=== PATIENT | female | born 1990 | race African-American/Black ===

== ENCOUNTER 2016-07-27 08:47 | Emergency (ER) | payer OTHER ==
[~2016-07-27] VITALS: Ht 157.5 cm; Wt 68.0 kg
[~2016-07-27 08:47] MED LIST: METR-1 PO
[2016-07-27 08:49] VITALS: PULSE 94; RESP 16; TEMP 98.9; O2SAT 97
[2016-07-27 09:07] VITALS: BP 111/76
--- NOTE | 2016-07-27 09:12 | PD ---
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 She has noticed the symptoms for the past 5 days and started after having intercourse. Patient reports that her partner used a condom. She has never had a reaction like this before. There is slight whitish vaginal discharge. No dysuria. No abdominal pain. No fevers or chills. Patient reports history of bacterial vaginosis. She tried Monistat without relief of symptoms. PFSH Past Medical History Asthma: Yes Diminished Hearing: No Immunizations Current: Yes Tetanus Vaccination: Unknown Influenza Vaccination: No ?: Not LMP: 07/08/16 : 1 Para: 0 Miscarriage: 0 : 1 Past Surgical History Surgical History: No Previous Surgery Social History Alcohol Use: No Tobacco Use: No Substance Use: No Allergies-Medications (Allergen,Severity, Reaction): Coded Allergies: No Known Allergies (Unverified , 07/27/16) Reported Meds & Prescriptions Reported Meds & Active Scripts Active No Active Prescriptions or Reported Medications Review of Systems Except as stated in HPI: all other systems reviewed are Neg Physical Exam Narrative GENERAL: Well-developed, well-nourished, comfortable, no acute distress. SKIN: Warm and dry. HEAD: Atraumatic. Normocephalic. ENT: Mucous membranes pink and moist. GASTROINTESTINAL: Abdomen soft, non-tender, nondistended. BULL RIVETER: Exam performed in the presence of female nurse. Normal external genitalia. Normal cervix. Scant whitish/[id number]-[id number] vaginal discharge. No CMT. No uterine tenderness. No adnexal masses or tenderness. PSYCHIATRIC: Appropriate mood and affect; insight and judgment normal. Data Data Last Documented VS Vital Signs Date Time Temp Pulse Resp B/P Pulse Ox O2 Delivery O2 Flow Rate FiO2 07/27/16 09:07 111/76 07/27/16 08:49 98.9 94 16 97 Orders Gc And Chlamydia Pcr (07/27/16 09:05) Wet Prep Profile (07/27/16 09:05) Urinalysis - C+S If Indicated (07/27/16 09:05) Ed Urine Pregnancytest Poc (07/27/16 09:05) Urine Culture (07/27/16 09:10) Fluconazole (Diflucan) (07/27/16 09:30) Labs Laboratory Tests Test 07/27/16 07/27/16 09:10 09:25 Urine Collection Type CLEAN CATCH Urine Color YELLOW Urine Turbidity CLEAR Urine pH 7.0 Urine Specific [place] 1.023 Urine Protein TRACE mg/dL Urine Glucose (UA) NEG mg/dL Urine Ketones NEG mg/dL Urine Occult Blood NEG Urine Nitrite NEG Urine Bilirubin NEG Urine Leukocyte Esterase MOD Urine RBC 0-3 /hpf Urine WBC 9-14 /hpf Urine Squamous Epithelial > 8 /hpf Cells Urine Bacteria FEW /hpf Urine Yeast (Budding) OCC Microscopic Urinalysis Comment CULTURE INDICATED Urine Collection Time 09:10 Clue Cells (Wet Prep) NONE SEEN Vaginal Trichomonas (Wet Prep) NONE SEEN Vaginal Yeast (Wet Prep) NONE SEEN MDM Medical Decision Making Medical Screen Exam Complete: Yes Emergency Medical Condition: Yes Differential Diagnosis vulvovaginal candidiasis, contact dermatitis, latex allergy, BV, Trichomonas, PID Narrative Course Vital signs show heart rate 94, blood pressure 111/76, pulse ox 97% on room air , oral temp of 98.9F. UA shows moderate leukocyte esterase, 9-14 wbc's, greater than 8 squamous epithelial cells, few bacteria, occasional budding yeast. Urine is negative. Prep is negative for yeast, negative for clue cells, negative for Trichomonas. Gonorrhea and chlamydia PCR pending. The patient's physical exam is not consistent with PID. Patient was given a dose of Diflucan because of budding yeast in her urine. Her UA results are likely a contaminant, and not necessarily UTI. I will give her a 3 day course of Bactrim however. I will also give her a prescription for a second dose of Diflucan to take in 72 hours should her symptoms not improve. She is stable for follow-up with a director oncology this week. She was informed on when to return to the emergency department. She verbalizes understanding and agreement with plan. Diagnosis Primary Impression: Vulvovaginal candidiasis Additional Impression: UTI (urinary tract infection) Qualified Code: N39.0 - Urinary tract infection without hematuria, site unspecified Referrals: Stacey Glover MD 3 days Vertical Borer Vertical Borer 3 days Additional Instructions: Take medications as prescribed. Follow-up with a director oncology this week. Return to the emergency department for worsening symptoms or any other concerns as discussed. Scripts Sulfamethoxazole-Trimethoprim (Bactrim DS)800-160 Mg Tab1 Tab PO BID #6 TAB Ref 0 Prov:Miguel Newton MD 07/27/16 Fluconazole (Diflucan)150 Mg [id number] Mg PO ONCE #1 TAB Ref 0 Prov:Miguel Newton MD 07/27/16 Disposition: 01 DISCHARGE HOME Condition: Stable Miguel Newton MD Jul 27, 2016 09:12
[2016-07-27 09:18] LABS: BLOOD, URINE NEG (NEG); GLUCOSE,URINE NEG (NEG); KETONE, URINE NEG (NEG); NITRITE,URINE NEG (NEG)
[2016-07-27 09:26] LABS: METHOD OF COLLECTION CLEAN CATCH; URINE COLOR YELLOW (YELLW/STRAW)
[2016-07-27 09:27] LABS: BACTERIA, URINE FEW /hpf; COMMENT (UR) CULTURE INDICATED; CULTURE IF INDICATED CULTURE INDICATED; RBC, URINE 0-3 /hpf (0-3); SQUAMOUS EPITHELIAL CELL URINE > 8 /hpf (0-5)
[2016-07-27] MEDS ORDERED: FLUCONAZOLE 100 MG TAB PO ONE (09:30)
[2016-07-27] MEDS ORDERED: DIFL150T PO (09:48)
[2016-07-27] MEDS ORDERED: BACT800T5 PO (09:48)
[2016-07-27 12:32] LABS: CHLAMYDIA PCR NOT DETECTED (NOT DETECT); NEISSERIA PCR NOT DETECTED (NOT DETECT)
== END 2016-07-27 10:12 | disposition home or self-care (01) ==
LOC: PHED 08:47
DX: B37.3 Candidiasis of vulva and vagina (principal); N39.0 Urinary tract infection, site not specified; J45.909 Unspecified asthma, uncomplicated
CPT/HCPCS: 81001; 84703; 87086; 87210; 87491; 87591; 99283

== ENCOUNTER 2016-10-19 08:02 | Emergency (ER) | payer OTHER ==
[~2016-10-19] VITALS: Ht 157.5 cm; Wt 68.5 kg
[~2016-10-19 08:02] MED LIST changes: +BACT800T5 PO; +DIFL150T PO; -METR-1 PO
[2016-10-19 08:06] VITALS: BP 108/79; PULSE 79; RESP 18; TEMP 98.2; O2SAT 100
[2016-10-19] MEDS ORDERED: DIFL150T PO (08:26)
--- NOTE | 2016-10-19 08:28 | PD ---
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 This patient complains of vaginal discharge for one week. Some itching to it. She's had a yeast infection in the past and this feels the same. She has not been sexually active for 2 months. Denies or vaginal bleeding or pelvic pain. Symptoms severity is mild PFSH Past Medical History Asthma: Yes Diminished Hearing: No Immunizations Current: Yes ?: Not LMP: 10/04/16 : 1 Para: 0 Miscarriage: 0 : 1 Social History Alcohol Use: No Tobacco Use: No Substance Use: No Allergies-Medications (Allergen,Severity, Reaction): Coded Allergies: No Known Allergies (Unverified , 10/19/16) Reported Meds & Prescriptions Reported Meds & Active Scripts Active Bactrim DS (Sulfamethoxazole-Trimethoprim) 800-160 Mg Tab 1 Tab PO BID Diflucan (Fluconazole) 150 Mg Tab 150 Mg PO ONCE Review of Systems General / Constitutional: No: Fever HENT: No: Headaches Cardiovascular: No: Chest Pain or Discomfort Physical Exam Narrative GASTROINTESTINAL: Abdomen soft, non-tender, nondistended. Positive bowel sounds. No hepato-splenomegaly, or palpable masses. No guarding. SKIN: Focused skin assessment reveals no rash or ulcers. Skin is warm and dry. Palpation shows no induration or nodules. Pelvic: Speculum exam reveals a thick white clumped discharge consistent with yeast infection. There is no bleeding. No lesions. Data Data Last Documented VS Vital Signs Date Time Temp Pulse Resp B/P Pulse Ox O2 Delivery O2 Flow Rate FiO2 10/19/16 08:06 98.2 79 18 108/79 100 MDM Medical Decision Making Medical Screen Exam Complete: Yes Emergency Medical Condition: Yes Medical Record Reviewed: Yes Differential Diagnosis yEast infection, cervicitis, PID Narrative Course I have reviewed the patient's electronic medical record. Was here in July 2016 for yeast infection Clinical exam is very consistent with yeast infection. I don't feel like obtaining formal wet prep to prove this would change any management. Diflucan prescribed. She has tolerated this well before and requested over Monistat. Diagnosis Primary Impression: Vulvovaginal candidiasis Additional Instructions: The patient was advised to follow up with their physician and return if they worsen. Med/Other Pt SpecificInfo: Prescription(s) given Scripts Fluconazole (Diflucan)150 Mg [id number] Mg PO ONCE #1 TAB Ref 1 Prov:Obed Paige MD 10/19/16 Fluconazole (Diflucan)150 Mg [id number] Mg PO ONCE #1 TAB Ref 0 Prov:Obed Paige MD 10/19/16 Disposition: 01 DISCHARGE HOME Condition: Stable Obed Paige MD October 19, 2016 08:28
== END 2016-10-19 08:38 | disposition home or self-care (01) ==
LOC: PHED 08:02
DX: B37.3 Candidiasis of vulva and vagina (principal)
CPT/HCPCS: 99283

== ENCOUNTER 2017-03-09 21:28 | Emergency (ER) | payer OTHER ==
[~2017-03-09] VITALS: Ht 157.5 cm; Wt 69.0 kg
[~2017-03-09 21:28] MED LIST changes: -BACT800T5 PO
[2017-03-09 21:55] VITALS: BP 110/78; PULSE 73; RESP 16; TEMP 98.2; O2SAT 99
--- NOTE | 2017-03-09 22:34 | PD ---
HPI Chief Complaint: Chest Pain Time Seen by Provider: 22:23 Travel History International Travel<30 days: No Contact w/Intl Traveler<30days: No Traveled to known affect area: No History of Present Illness HPI The patient is a 26-year-old female that complains of a sharp, pleuritic chest pain in the left anterior chest region since noon. She does not have a history of heart disease. She does not smoke, have hypertension or diabetes. She denies any fever or cough. She states the pain comes on with movements and deep breathing. There is no nausea, diaphoresis or shortness of breath. The pain only comes on with movements or deep breathing. She states there is no possibility of . PFSH Past Medical History Asthma: Yes Diminished Hearing: No Immunizations Current: Yes ?: Unknown LMP: 02/22/17 : 1 Para: 0 Miscarriage: 0 : 1 Social History Alcohol Use: Yes (wine occas.) Tobacco Use: No Substance Use: No Allergies-Medications (Allergen,Severity, Reaction): Coded Allergies: No Known Allergies (Unverified , 03/09/17) Reported Meds & Prescriptions Reported Meds & Active Scripts Active Reported Proair Hfa 8.5 GM Inh (Albuterol Sulfate) 90 Mcg/Act Aer 2 Puff INH Q4-6H PRN 108 mcg/actuation Tylenol (Acetaminophen) 325 Mg Tab 650 Mg PO Q6H PRN Review of Systems Except as stated in HPI: all other systems reviewed are Neg Physical Exam Narrative GENERAL: The patient is alert, oriented 3 in minimal apparent distress with her chest pain. Her vital signs are normal. SKIN: Focused skin assessment warm/dry. HEAD: Atraumatic. Normocephalic. EYES: Pupils equal and round. No scleral icterus. No injection or drainage. ENT: No nasal bleeding or discharge. Mucous membranes pink and moist. NECK: Trachea midline. No JVD. CARDIOVASCULAR: Regular rate and rhythm. No murmur appreciated. RESPIRATORY: No accessory muscle use. Clear to auscultation. Breath sounds equal bilaterally. I can completely reproduce the patient's pain by pressing on the chest wall. GASTROINTESTINAL: Abdomen soft, non-tender, nondistended. Hepatic and splenic margins not palpable. MUSCULOSKELETAL: No obvious deformities. No clubbing. No cyanosis. No edema. NEUROLOGICAL: Awake and alert. No obvious cranial nerve deficits. Motor grossly within normal limits. Normal speech. PSYCHIATRIC: Appropriate mood and affect; insight and judgment normal. Data Data Last Documented VS Vital Signs Date Time Temp Pulse Resp B/P (MAP) Pulse Ox O2 Delivery O2 Flow Rate FiO2 03/09/17 22:31 73 20 100 03/09/17 22:24 (89) 03/09/17 21:55 98.2 Orders Orders Complete Blood Count With Diff (03/09/17 22:29) Basic Metabolic Panel (Bmp) (03/09/17 22:29) Troponin I (03/09/17 22:29) D-Dimer (03/09/17 22:29) Chest, Pa & Lat (03/09/17 22:29) Ed Urine Pregnancytest Poc (03/09/17 22:31) Electrocardiogram (03/09/17 22:34) Labs Laboratory Tests Test 03/09/17 23:00 White Blood Count 7.2 TH/MM3 Red Blood Count 4.12 MIL/MM3 Hemoglobin 11.7 GM/DL Hematocrit 36.0 % Mean Corpuscular Volume 87.3 FL Mean Corpuscular Hemoglobin 28.5 PG Mean Corpuscular Hemoglobin Concent 32.7 % Red Cell Distribution Width 13.4 % Platelet Count 278 TH/MM3 Mean Platelet Volume 8.9 FL Neutrophils (%) (Auto) 50.4 % Lymphocytes (%) (Auto) 40.8 % Monocytes (%) (Auto) 6.6 % Eosinophils (%) (Auto) 1.6 % Basophils (%) (Auto) 0.6 % Neutrophils # (Auto) 3.7 TH/MM3 Lymphocytes # (Auto) 2.9 TH/MM3 Monocytes # (Auto) 0.5 TH/MM3 Eosinophils # (Auto) 0.1 TH/MM3 Basophils # (Auto) 0.0 TH/MM3 CBC Comment DIFF FINAL Differential Comment D-Dimer Quantitative (PE/DVT) LESS THAN 0.19 MG/L FEU Blood Urea Nitrogen 13 MG/DL Creatinine 0.76 MG/DL Random Glucose 96 MG/DL Calcium Level 8.8 MG/DL Sodium Level 137 MEQ/L Potassium Level 3.6 MEQ/L Chloride Level 102 MEQ/L Carbon Dioxide Level 28.6 MEQ/L Anion Gap 6 MEQ/L Estimat Glomerular Filtration Rate 113 ML/MIN Troponin I LESS THAN 0.02 NG/ML MDM Medical Decision Making Medical Screen Exam Complete: Yes Emergency Medical Condition: Yes Medical Record Reviewed: Yes Interpretation(s) The chest x-ray is normal. The EKG shows sinus rhythm with a rate of 75 and sinus arrhythmia but is otherwise normal. The basic metabolic profile is normal and the troponin I is normal. The CBC is normal. The d-dimer is normal. Differential Diagnosis Pleuritic pain, chest wall pain, musculoskeletal pain, esophageal pain, acute coronary syndrome, gastrointestinal pain, pneumothorax-highly unlikely, electrolyte disorder, pneumonia Narrative Course The patient appears to have chest wall pain. Clinically and using the imaging/ laboratory/EKG findings there is no evidence for any of the other above possibilities. Plan: The patient be put on Motrin 600 mg 3 times daily. She should follow-up with her primary care physician this week or early next week. Additional Instructions: If this is persistent pain, follow-up with her primary care physician. Take the Motrin regularly, 1 tablet 3 times daily. It should help but after about 3- 5 days. Med/Other Pt SpecificInfo: Prescription(s) given Scripts Ibuprofen (Ibuprofen) 600 Mg Tab 600 MG PO TID, #33 TAB 0 Refills Prov: Sigifredo Woo MD 03/09/17 Disposition: 01 DISCHARGE HOME Condition: Stable Sigifredo Woo MD Mar 09, 2017 22:34
--- NOTE | 2017-03-09 22:48 | RADRPT ---
EXAM DATE/TIME: 03/09/2017 22:33 [facility] COMPARISON: No previous studies available for comparison. INDICATIONS : Chest pain. MEDICAL HISTORY : Asthma. SURGICAL HISTORY : None. ENCOUNTER: Initial ACUITY: 1 day PAIN SCORE: 6/10 LOCATION: Bilateral chest FINDINGS: PA and lateral views of the chest demonstrate the lungs to be symmetrically aerated without evidence of mass, infiltrate or effusion. The cardiomediastinal contours are unremarkable. Osseous structure s are intact. CONCLUSION: No acute disease. Caleb Benton MD on March 09, 2017 at 22:46 Board Certified Radiologist. This report was verified electronically.
[2017-03-09 23:00] VITALS: BP 112/76; PULSE 68; RESP 20; O2SAT 98
[2017-03-09] MEDS ORDERED: TYLE325T PO (23:16)
[2017-03-09] MEDS ORDERED: ALBUAER3 INH (23:16)
[2017-03-09 23:20] LABS: CHLORIDE 102 MEQ/L (98-107); POTASSIUM 3.6 MEQ/L (3.5-5.1); SODIUM (NA) 137 MEQ/L (136-145)
[2017-03-09 23:23] LABS: ANION GAP 6 MEQ/L (5-15); AUTOMATED NEUTROPHIL # 3.7 TH/MM3 (1.8-7.7); BASOPHIL % 0.6 % (0.0-2.0); BICARBONATE 28.6 MEQ/L (21.0-32.0); EOSINOPHIL # 0.1 TH/MM3 (0-0.4); EOSINOPHIL % 1.6 % (0.0-4.0); HEMO FLAGS DIFF FINAL; LYMPH % 40.8 % (9.0-44.0); LYMPHOCYTE # 2.9 TH/MM3 (1.0-4.8); MEAN CELL VOLUME 87.3 FL (80.0-100.0); MEAN CORPUSCULAR HEMOGLOBIN 28.5 PG (27.0-34.0); MEAN CORPUSCULAR HGB CONC 32.7 % (32.0-36.0); MONO % 6.6 % (0.0-8.0); NEUT % 50.4 % (16.0-70.0); PLATELET COUNT 278 TH/MM3 (150-450); RED BLOOD COUNT 4.12 MIL/MM3 (4.00-5.30); RED CELL DISTRIBUTION WIDTH 13.4 % (11.6-17.2); WHITE BLOOD COUNT 7.2 TH/MM3 (4.0-11.0)
[2017-03-09 23:24] LABS: BLOOD UREA NITROGEN 13 MG/DL (7-18)
[2017-03-09 23:27] LABS: GLOMERULAR FILTRATION RATE 113 ML/MIN (>89)
[2017-03-09] MEDS ORDERED: IBUP-232 PO (23:49)
[2017-03-10] MEDS ORDERED: KETOROLAC TROMETHAMINE 60 MG/2 ML (IM) VIAL IVP ONE
[2017-03-10 00:08] VITALS: BP 115/75
--- NOTE | 2017-03-10 21:48 | EKG ---
Date Performed: 03/09/2017 Time Performed: 21:43:29 PTAGE: 26 years EKG: Sinus rhythm WITH MARKED SINUS ARRHYTHMIA BORDERLINE ECG NO PREVIOUS TRACING DOCTOR: Jasper Mariscal Interpretating Date/Time 03/10/2017 21:46:52
== END 2017-03-10 00:17 | disposition home or self-care (01) ==
LOC: PHED 21:28
DX: R07.89 Other chest pain (principal)
CPT/HCPCS: 71020; 80048; 84484; 84703; 85025; 85379; 93005; 96374; 99285; J1885

== ENCOUNTER 2017-07-26 08:50 | Emergency (ER) | payer OTHER ==
[~2017-07-26 08:50] MED LIST changes: +ALBUAER3 INH; -DIFL150T PO; +IBUP-232 PO; +TYLE325T PO
[2017-07-26 08:56] VITALS: BP 120/72; PULSE 95; RESP 16; TEMP 97.8; O2SAT 98
[2017-07-26] MEDS ORDERED: KETOROLAC TROMETHAMINE 30 MG/ML (IVP) VIAL IV PUSH ONE (09:30)
--- NOTE | 2017-07-26 09:43 | PD ---
HPI Chief Complaint: Musculoskeletal Complaint Time Seen by Provider: 09:00 Travel History International Travel<30 days: No Contact w/Intl Traveler<30days: No Traveled to known affect area: No History of Present Illness HPI Patient stated that she had been traveling to [place] and that during the time that she was there that "she did a lot of things" did not really elaborate much on that but did state that she was very active and going [place] walking etc. But states that she is relatively fit and has never been had any problems like this before. What was most concerning to her is that she has to take Tylenol and Motrin while she was on the trip just to be able to make it through. Now she describes the pain as sharp around her left hip 9 out of 10, causes her to limp. Patient states no vaginal discharge, single partner and protected intercourse with condom. Patient denies any other past medical history. Patient also denies any associated factors such as fever, rash, nausea , vomiting, diarrhea, abdominal pain, chest pain, or headache. No known drug allergies Past medical history significant only for asthma Past surgical history significant for elective AB, otherwise patient is a PFSH Past Medical History Medical History: Denies Significant Hx Asthma: Yes Diminished Hearing: No Immunizations Current: Yes ?: Not : 1 Para: 0 Miscarriage: 0 : 1 Past Surgical History Surgical History: No Previous Surgery Social History Alcohol Use: Yes (SOCIALLY) Tobacco Use: No Substance Use: No Allergies-Medications (Allergen,Severity, Reaction): Coded Allergies: No Known Allergies (Unverified Allergy, Unknown, 07/26/17) Reported Meds & Prescriptions Reported Meds & Active Scripts Active No Active Prescriptions or Reported Medications Physical Exam Narrative GENERAL: SKIN: Warm and dry. HEAD: Atraumatic. Normocephalic. EYES: Pupils equal and round. No scleral icterus. No injection or drainage. ENT: No nasal bleeding or discharge. Mucous membranes pink and moist. NECK: Trachea midline. No JVD. CARDIOVASCULAR: Regular rate and rhythm. RESPIRATORY: No accessory muscle use. Clear to auscultation. Breath sounds equal bilaterally. GASTROINTESTINAL: Abdomen soft, LLQ TT PERCUSSION, nondistended. MUSCULOSKELETAL: Extremities without clubbing, cyanosis, or edema. No obvious deformities. Patient also appear to have tenderness to palpation along the left femur without any crepitus. As well as hip pain with internal and external rotation NEUROLOGICAL: Awake and alert. No obvious cranial nerve deficits. Motor grossly within normal limits. Five out of 5 muscle strength in the arms and legs. Normal speech. PSYCHIATRIC: Appropriate mood and affect; insight and judgment normal. Data Data Last Documented VS Vital Signs Date Time Temp Pulse Resp B/P (MAP) Pulse Ox O2 Delivery O2 Flow Rate FiO2 07/26/17 11:42 82 111/67 (82) 98 07/26/17 08:56 97.8 16 Orders Orders Urinalysis - C+S If Indicated (07/26/17 09:30) Ed Urine Pregnancytest Poc (07/26/17 09:30) Ct Pelvis W Iv Contrast(Rout) (07/26/17 ) Iv Access Insert/Monitor (07/26/17 09:30) Ketorolac Inj (Toradol Inj) (07/26/17 09:30) Gc And Chlamydia Pcr (07/26/17 09:37) Femur (Ap & Lat/2vws) (07/26/17 09:43) Iohexol 350 Inj (Omnipaque 350 Inj) (07/26/17 10:31) Us Pelvis Comp W Doppler (07/26/17 11:44) Labs Laboratory Tests Test 07/26/17 09:49 Urine Color YELLOW Urine Turbidity CLEAR Urine pH 6.0 Urine Specific [place] 1.025 Urine Protein NEG mg/dL Urine Glucose (UA) NEG mg/dL Urine Ketones NEG mg/dL Urine Occult Blood TRACE Urine Nitrite NEG Urine Bilirubin NEG Urine Urobilinogen 0.2 MG/DL Urine Leukocyte Esterase NEG Urine RBC 0-3 /hpf Urine WBC 0-2 /hpf Urine Squamous Epithelial Cells > 8 /hpf Microscopic Urinalysis Comment CULT NOT INDICATED MDM Medical Decision Making Medical Screen Exam Complete: Yes Emergency Medical Condition: Yes Medical Record Reviewed: Yes Differential Diagnosis Avascular necrosis versus nongonococcal arthritis versus Devyn's syndrome Narrative Course Urinalysis is negative for any evidence of UTI. test negative Femur x-ray read as negative by radiologist. CT of pelvis does not show any evidence of fracture, degenerative changes or avascular necrosis of either hip. It does however show a small cystic mass on the left adnexal region according to the radiologist. Diagnosis Primary Impression: Ovarian cyst Qualified Codes: N83.202 - Unspecified ovarian cyst, left side Additional Impression: Ovarian cyst LEFT WITHOUT TORSION Referrals: Martinez Sandoval MD FOR FURTHER EVALUATION AND CARE Patient Instructions: General Instructions, Ovarian Cyst (ED) Scripts Ketorolac (Ketorolac) 10 Mg Tab 10 MG PO TID Y for Pain Management, #14 TAB 0 Refills Prov: Haider Ponce MD 07/26/17 Disposition: 01 DISCHARGE HOME Condition: Stable Haider Ponce MD Jul 26, 2017 09:43
[2017-07-26 09:54] LABS: BILIRUBIN, URINE NEG (NEG); BLOOD, URINE TRACE (NEG); GLUCOSE,URINE NEG (NEG); KETONE, URINE NEG (NEG); NITRITE,URINE NEG (NEG); URINE COLOR YELLOW (YELLW/STRAW); URINE LEUKOCYTE ESTERASE NEG (NEG)
[2017-07-26 10:03] LABS: RBC, URINE 0-3 /hpf (0-3); SQUAMOUS EPITHELIAL CELL URINE > 8 /hpf (0-5); WBC, URINE 0-2 /hpf (0-5)
--- NOTE | 2017-07-26 10:07 | RADRPT ---
EXAM DATE/TIME: 07/26/2017 09:52 [facility] COMPARISON: No previous studies available for comparison. INDICATIONS : Left hip, upper leg area pain, no known injury MEDICAL HISTORY : None. SURGICAL HISTORY : None. ENCOUNTER: Initial ACUITY: 2 weeks PAIN SCORE: 8/10 LOCATION: Left hip area TECH NOTE: Denies FINDINGS: Two view examination of the left femur demonstrates no evidence of fracture or dislocation. Bony min eralization is normal. The soft tissue structures are intact. CONCLUSION: Negative Ruben Álvarez MD FACR on July 26, 2017 at 10:05 Board Certified Radiologist. This report was verified electronically.
[2017-07-26] MEDS ORDERED: IOHEXOL 350 MG/ML 10 ML VIAL (for RAD DIAG) IVCONTRAST ONE (10:31)
--- NOTE | 2017-07-26 10:41 | RADRPT ---
EXAM DATE/TIME: 07/26/2017 10:26 [facility] COMPARISON: No previous studies available for comparison. INDICATIONS : Left hip pain for one week. No injury. Evaluate for left avascular necrosis. IV CONTRAST: 75 cc Omnipaque 350 (iohexol) IV ORAL CONTRAST: No oral contrast ingested. RADIATION DOSE: 15.01 CTDIvol (mGy) MEDICAL HISTORY : Asthma SURGICAL HISTORY : None. ENCOUNTER: Initial ACUITY: 1 week PAIN SCALE: 8/10 LOCATION: Left pelvis TECHNIQUE: Volumetric scanning of the pelvis was performed. Using automated exposure control and adjustment of t he mA and/or kV according to patient size, radiation dose was kept as low as reasonably achievable to obtain optimal diagnostic quality images. DICOM format image data is available electronically for review and comparison. FINDINGS: 2 cm cystic mass left adnexa region. No free fluid. No adenopathy I do not see degenerative changes orbits or avascular necrosis. SI joints are normal. CONCLUSION: Small cystic mass left adnexal region. No fracture, degenerative changes or avascular necrosis of either hip. MRI would be more sensitive. Ruben Álvarez MD FACR on July 26, 2017 at 10:38 Board Certified Radiologist. This report was verified electronically.
[2017-07-26 11:42] VITALS: BP 111/67; PULSE 82; O2SAT 98
--- NOTE | 2017-07-26 13:18 | RADRPT ---
EXAM DATE/TIME: 07/26/2017 12:37 [facility] COMPARISON: No previous studies available for comparison. INDICATIONS : Pelvic pain. MEDICAL HISTORY : Asthma. SURGICAL HISTORY : None. ENCOUNTER: Initial ACUITY: 4-6 days PAIN SCORE: 6/10 LOCATION: Bilateral pelvis MEASUREMENTS: UTERUS: 7.5 x 4.8 x 4.2 cm ENDOMETRIAL STRIPE: 7 mm RIGHT OVARY: 2.6 x 2.4 x 1.9 cm LEFT OVARY: 2.6 x 2.4 x 2.2 cm FINDINGS: UTERUS: The myometrium has homogeneous echotexture without mass. RIGHT OVARY: Ovary contains no mass or significant cystic lesion. LEFT OVARY: 1.7 cm left ovarian cyst MISCELLANEOUS: Trace fluid in cul-de-sac CONCLUSION: 1.7 similar left ovarian cyst with trace fluid in cul-de-sac. Symmetrical blood flow to both ovaries Ruben Álvarez MD FACR on July 26, 2017 at 13:15 Board Certified Radiologist. This report was verified electronically.
[2017-07-26] MEDS ORDERED: KETO10 PO (13:23)
== END 2017-07-26 13:55 | disposition home or self-care (01) ==
LOC: PHED 08:50
DX: N83.202 Unspecified ovarian cyst, left side (principal); J45.909 Unspecified asthma, uncomplicated
CPT/HCPCS: 72193; 73552; 76856; 81001; 84703; 87491; 87591; 93975; 96374; 99285; J1885; Q9967